=== PATIENT | male | born 1980 | race Two or more races ===

== ENCOUNTER 2016-12-17 13:31 | Emergency (ER) | payer SELFPAY ==
[2016-12-17] MEDS ORDERED: Dexamethasone 4 MG/ML SDV IM ONE (13:53)
[2016-12-17] MEDS ORDERED: Lidocaine 2% Viscous Solution 15 ML Cup PO ONE (13:54)
--- NOTE | 2016-12-17 14:00 | EDM.PDOC ---
ED HPI GENERAL MEDICAL PROBLEM - General Chief Complaint: ENT Problem Stated Complaint: PT SAID HE CAN'T BREATH Time Seen by Provider: 12/17/16 13:39 - History of Present Illness INITIAL COMMENTS - FREE TEXT/NARRATIVE: HISTORY AND PHYSICAL: History of present illness: The patient is a 36-year-old male with no stated medical problems who presents with a few day history of sore throat difficulty eating subjective fever his left ear pain. The patient denies any ill contacts and has had no cough vomiting diarrhea but has had nausea. Patient says is hard to swallow foods and drink because of the discomfort. Patient has only tried [id number] Tylenol for pain. Review of systems: As per history of present illness and below otherwise all systems reviewed and negative. Past medical history: As per history of present illness and as reviewed below otherwise noncontributory. Surgical history: As per history of present illness and as reviewed below otherwise noncontributory. Social history: No reported history of drug or alcohol abuse. Family history: As per history of present illness and as reviewed below otherwise noncontributory. Physical exam: General: Well-developed well-nourished man speaks with slightly hoarse voice but is nontoxic in handling secretions that difficulties. Patient's vital signs of been noted by me. HEENT: Atraumatic, normocephalic, pupils reactive, negative for conjunctival pallor or scleral icterus, mucous membranes moist, neck supple, nontender, trachea midline. There is some anterior cervical adenopathy but no posterior adenopathy or nuchal rigidity. TM on the right is unable to be seen due to impacted cerumen and TM on the left is dulled without any bulging or debris in the canal. Patient has bilaterally enlarged tonsils with exudates right greater than left but uvula is midline and the tonsils are not kissing Lungs: Clear to auscultation, breath sounds equal bilaterally, chest nontender. There is no wheezing or stridor appreciated and no work of breathing Heart: S1S2, regular, negative for clicks, rubs, or JVD. Abdomen: Soft, nondistended, nontender. NABS Genitourinary: Deferred. Rectal: Deferred. Extremities: Atraumatic, negative for cords or calf pain. Neurovascular unremarkable. Neuro: Awake, alert, oriented. Cranial nerves II through XII unremarkable. Cerebellum unremarkable. Motor and sensory unremarkable throughout. Exam nonfocal. Diagnostics: [] Therapeutics: Decadron viscous lidocaine Impression: Exudative tonsillitis Definitive disposition and diagnosis as appropriate pending reevaluation and review of above. throat , left ear Pain Score (Numeric/FACES): 7 - Related Data Allergies Allergy/AdvReac Type Severity Reaction Status Date / Time No Known Allergies Allergy Verified 12/11/14 21:03 Home Meds: Home Meds . [No Known Home Meds] 07/26/14 [History] Past Medical History - Past Health History Medical/Surgical History: Denies Medical/Surgical History Social & Family History - Tobacco Use Smoking Status *Q: Current Every Day Smoker Years of Tobacco use: 10 Packs/Tins Daily: 0.5 - Alcohol Use Days Per Week of Alcohol Use: 2 Number of Drinks Per Day: 5 Total Drinks Per Week: 10 - Recreational Drug Use Recreational Drug Use: No Recreational Drug Type: Reports: Marijuana/Hashish ED ROS GENERAL - Review of Systems Review Of Systems: ROS reveals no pertinent complaints other than HPI. ED EXAM, GENERAL - Physical Exam Exam: See Below (See dictation) Course - Vital Signs Last Recorded V/S: Last Vital Signs Temp 37.3 C 12/17/16 13:45 Pulse 107 H 12/17/16 13:45 Resp 18 12/17/16 13:45 BP 142/88 H 12/17/16 13:45 Pulse Ox 97 12/17/16 13:45 - Orders/Labs/Meds Orders: Active Orders 24 hr Category Date Time Status Lidocaine 2% [Xylocaine 2% Viscous] Med 12/17/16 13:54 Once 15 ml PO ONETIME ONE Meds: Medications Discontinued Medications Generic Name Dose Route Start Last Admin Trade Name Marvinq PRN Reason Stop Dose Admin Dexamethasone 10 mg 12/17/16 13:53 Dexamethasone IM 12/17/16 13:54 ONETIME ONE Departure - Departure Time of Disposition: 13:59 Disposition: Home, Self-Care 01 Condition: good Clinical Impression: Exudative tonsillitis Forms: ED Department Discharge Additional Instructions: The following information is given to patients seen in the emergency department who are being discharged to home. This information is to outline your options for follow-up care. We provide all patients seen in our emergency department with a follow-up referral. The need for follow-up, as well as the timing and circumstances, are variable depending upon the specifics of your emergency department visit. If you don't have a primary care physician on staff, we will provide you with a referral. We always advise you to contact your personal physician following an emergency department visit to inform them of the circumstance of the visit and for follow-up with them and/or the need for any referrals to a consulting specialist. The emergency department will also refer you to a specialist when appropriate. This referral assures that you have the opportunity for followup care with a specialist. All of these measure are taken in an effort to provide you with optimal care, which includes your followup. Under all circumstances we always encourage you to contact your private physician who remains a resource for coordinating your care. When calling for followup care, please make the office aware that this follow-up is from your recent emergency room visit. If for any reason you are refused follow-up, please contact the [facility] emergency department at and ask to speak to the emergency department charge nurse. [facility] Primary care- Internal Medicine and Family [address] [address] Please fill prescriptions and use as directed. Also use [id number] Tylenol /ibuprofen for fever and pain. Please push liquids as we discussed such as water and Gatorade and eat soft foods as tolerated. Return to ER as needed and as discussed in please call and followup in our clinic in one to 2 days. - My Orders Last 24 Hours: My Active Orders 12/17/16 13:54 Lidocaine 2% [Xylocaine 2% Viscous] 15 ml PO ONETIME ONE - Assessment/Plan Last 24 Hours: My Active Orders 12/17/16 13:54 Lidocaine 2% [Xylocaine 2% Viscous] 15 ml PO ONETIME ONE
[2016-12-17] MEDS ORDERED: Dexamethasone 10 MG/ML SDV IM ONE (14:01)
[2016-12-17 14:43] VITALS: BP 138/92
== END 2016-12-17 14:35 | disposition home or self-care (01) ==
LOC: MW.ED 13:31
DX: J03.90 Acute tonsillitis, unspecified (principal); F17.210 Nicotine dependence, cigarettes, uncomplicated
CPT/HCPCS: 96372; 99282; A9270; J1100; 99283